=== PATIENT | female | born 1990 | race American Indian/Alaskan Native ===

== ENCOUNTER 2016-10-04 10:32 | Emergency (ER) | payer SELFPAY ==
[2016-10-04 11:37] VITALS: BP 110/78
== END 2016-10-04 17:11 | disposition left against medical advice (07) ==
LOC: ED 10:32
DX: M25.562 Pain in left knee (principal); M79.89 Other specified soft tissue disorders; R20.2 Paresthesia of skin; Z53.21 Procedure and treatment not carried out due to patient leaving prior to being seen by health care provider; W17.89XA Other fall from one level to another, initial encounter; Y93.9 Activity, unspecified; Y92.9 Unspecified place or not applicable; Y99.9 Unspecified external cause status